=== PATIENT | male | born 1950 | race Caucasian/White ===

== ENCOUNTER 2018-08-20 05:50 | Inpatient (IN) ==
--- NOTE | 2018-08-07 13:06 | Anesthesiology Consultation ---
Date of Service August 07, 2018 Assessment & Plan (1) Encounter for pre-operative examination: Chart Review Chart Review: Acceptable Risk for Surgery and Patient seen in Pre Admission Testing Consults Requested medical (Dr. Meraz (08/14)) Patient was seen by PCPs office on 08/14/18. Per note, "Patient is medically cleared for surgery as scheduled. He has discussed risks/benefits with surgeon and elected to proceed. He has been instructed to stop his Coumadin today. He will start Lovenox injections twice daily starting tomorrow (08/15) as prescribed with his last dose of Lovenox prior to surgery being on the evening of August 19." Teaching & Discussion Pre-Anesthesia Teaching/Discussion Notes: Instructed NPO after midnight before surgery, except medications with 15 cc of water. Medication instructions provided according to the PAT guidelines. History Surgery Operation Date: 08/20/18 08:20 Proposed Procedures p Left Total Knee Arthroplasty - Jaquan Talavera MD Height/Weight Height: 5 ft 9 in Weight: 116.1 kg Allergies Allergy/AdvReac Type Severity Reaction Status Date / Time Penicillins Allergy Unknown Rash Verified 07/31/18 10:32 Medications Home Medications Medication Instructions Recorded Confirmed Last Taken calcium carbonate-vitamin D3 1 tab PO BID 07/31/18 07/31/18 Unknown [Calcium 500 + D (D3)] cyanocobalamin (vitamin B-12) 1,000 mcg PO QAM 07/31/18 07/31/18 Unknown folic acid 2 - 3 mg PO BID 07/31/18 07/31/18 Unknown lisinopril-hydrochlorothiazide 1 tab PO QAM 07/31/18 07/31/18 Unknown potassium chloride 20 meq PO BID 07/31/18 07/31/18 Unknown pyridoxine (vitamin B6) [Vitamin 300 mg PO BID 07/31/18 07/31/18 Unknown B-6] ranitidine HCl 150 mg PO DAILY PRN 07/31/18 07/31/18 Unknown simvastatin 20 mg PO PM 07/31/18 07/31/18 Unknown warfarin 2.5 - 5 mg PO QPM 07/31/18 07/31/18 Unknown Past Medical History Medical History Factor 5 Leiden mutation, heterozygous GERD (gastroesophageal reflux disease) Hyperlipidemia Hypertension Kidney stones Osteoarthritis Pulmonary embolism HX DVT TO PE-SPONTANEOUSLY SOB (shortness of breath) on exertion ON OCC Past Family History Family History Mother Family hx of colon cancer Past Surgical History Surgical History H/O knee surgery LEFT LIGAMENTS REPAIR History of arthroscopy LEFT History of cystoscopy WITH STONE REMOVAL/STENT History of herniorrhaphy UMBILICAL X 2 History of tonsillectomy S/P IVC filter REMAINS IN PLACE Past Anesthesia History No Hx of Anesthesia Complications and No Family Hx of Anesthesia Complications History of PONV No Motion Sickness Screening History of Motion Sickness: No Social History Smoking Status: Never smoker Do You Dip or Chew Tobacco: No (QUIT 35 YRS AGO) Hx Alcohol Use: Yes (ON OCC) Alcohol type: beer alcohol intake frequency: a few times a month Hx Substance Use: No substance use type: does not use Exercise / Class Metabolic Activity Able to climb FOS. Denies CP or SOB. Review of Systems Patient denies chest pain, shortness of breath, dyspnea on exertion, wheezing, palpitations. +joint pain (left knee) +acid reflux (occasional, helped by taking ranitidine) +cough (told it was from lisinopril) Physical Exam Vital Signs BP: 121/77 P: 83 R: 16 T: 98.2 SPO2: 97% on RA Constitutional + obese ENMT Thyromental Distance: > or= 3.5 Finger Breadths (3.5) Mallampati Class: II Neck normal visual inspection, trachea midline and + facial hair (advised); neck extension not limited Respiratory normal respiratory effort Auscultation: lungs clear to auscultation bilaterally Cardiovascular Rate/Rhythm: regular rate and regular rhythm Heart Sounds: no murmur Vessels: no carotid bruit Neurologic moves all extremities Psychiatric Orientation: alert and oriented x 3 Testing Electrocardiogram Date: 08/07/18 Findings: + NSR @ (76) Nonspecific ST and T wave abnormality. Chest X-Ray Date: 08/07/18 Findings: + NAD FINDINGS: The heart is at the upper limits of normal in size. There is a retrocardiac opacity consistent with a hiatal hernia. There is no failure. There is no focal pulmonary consolidation. There are no pleural effusions. There is bridging anterior calcification of the anterior longitudinal ligament within the dorsal spine. On the lateral projection and IVC filter is visualized. IMPRESSION: No active disease in the chest. Laboratory Results 08/07/18 13:18 08/07/18 13:18 Blood Type A Positive 08/07/18 13:18 Antibody Screen NEGATIVE 08/07/18 13:18 PT 26.5 Seconds (9.0-12.0) H 08/07/18 13:18 INR 2.8 (0.9-1.1) H 08/07/18 13:18 APTT 37.7 Seconds (21.0-31.0) H 08/07/18 13:18 Urine Color Yellow 08/07/18 13:18 Urine Appearance Clear (Clear) 08/07/18 13:18 Urine pH 5.0 (4.5-7.5) 08/07/18 13:18 Ur Specific Cope 1.021 (1.000-1.030) 08/07/18 13:18 Urine Protein Negative (Negative) 08/07/18 13:18 Urine Glucose (UA) Negative (Negative) 08/07/18 13:18 Urine Ketones Negative (Negative) 08/07/18 13:18 Urine Nitrite Negative (Negative) 08/07/18 13:18 Ur Leukocyte Esterase Negative (Negative) 08/07/18 13:18 Urine WBC (Auto) 1-5 /hpf (0-5) 08/07/18 13:18 Urine RBC (Auto) 0-4 /hpf (0-4) 08/07/18 13:18 U Hyaline Cast (Auto) 0 /lpf (0-5) 08/07/18 13:18 U Epithel Cells (Auto) 5-10 /lpf (0-5) H 08/07/18 13:18 Urine Bacteria (Auto) Negative (Negative) 08/07/18 13:18 08/07/18 13:18 Urine Culture - Final Urine,Clean Catch Three types of organisms present, all low counts probable skin lorelei. No further identifications or sensitivities to follow.
--- NOTE | 2018-08-07 13:08 | PAT Medication Instructions ---
Medication Instructions Date of Service August 07, 2018 Home Medications calcium carbonate-vitamin D3 1 tab PO BID cyanocobalamin (vitamin B-12) 1,000 mcg PO QAM folic acid 2 - 3 mg PO BID lisinopril-hydrochlorothiazide 1 tab PO QAM potassium chloride 20 meq PO BID pyridoxine (vitamin B6) 300 mg PO BID ranitidine HCl 150 mg PO DAILY NEEDED simvastatin 20 mg PO PM warfarin 2.5 - 5 mg PO QPM ASK your prescriber and surgeon warfarin 2.5 - 5 mg PO QPM DO NOT take the morning of surgery calcium carbonate-vitamin D3 1 tab PO BID cyanocobalamin (vitamin B-12) 1,000 mcg PO QAM folic acid 2 - 3 mg PO BID lisinopril-hydrochlorothiazide 1 tab PO QAM potassium chloride 20 meq PO BID pyridoxine (vitamin B6) 300 mg PO BID Take morning of surgery With a small sip of water, OTHERWISE NOTHING TO EAT OR DRINK AFTER MIDNIGHT: ranitidine HCl 150 mg PO DAILY NEEDED Take evening before surgery calcium carbonate-vitamin D3 1 tab PO BID folic acid 2 - 3 mg PO BID potassium chloride 20 meq PO BID pyridoxine (vitamin B6) 300 mg PO BID simvastatin 20 mg PO PM Other Notes If you have any questions please call us at [phone] or [phone] or [phone] or [phone]
--- NOTE | 2018-08-07 14:14 | XRay Report ---
XR chest Pre-admission PA/Lat CLINICAL HISTORY: Preoperative chest COMPARISON STUDY: No previous studies for comparison. FINDINGS: The heart is at the upper limits of normal in size. There is a retrocardiac opacity consist ent with a hiatal hernia. There is no failure. There is no focal pulmonary consolidation. There are n o pleural effusions. There is bridging anterior calcification of the anterior longitudinal ligament w ithin the dorsal spine. On the lateral projection and IVC filter is visualized.[ IMPRESSION: No active disease in the chest. Electronically signed by: Taz Soto M.D. 08/07/2018 2:13 PM
[2018-08-07 15:30] LABS: Basophils # (auto) 0.03 K/uL (0-0.2); Basophils % (auto) 0.3 %; Eosinophils # (auto) 0.24 K/uL (0-0.5); Eosinophils % (auto) 2.4 %; Hematocrit (blood only) 40.9 % (42-52); Hemoglobin 13.5 g/dL (14.0-18.0); Immature Granulocytes # (auto) 0.09 K/uL (0.00-0.02); Immature Granulocytes % (auto) 0.9 %; Lymphocytes # (auto) 2.87 K/uL (1.2-3.4); Lymphocytes % (auto) 28.1 %; Mean Corpuscular Volume 91.1 fL (80-100); Mean Platelet Volume 9.5 fL (7.4-10.4); Monocytes # (auto) 0.79 K/uL (0.11-0.59); Monocytes % (auto) 7.7 %; Neutrophils # (auto) 6.18 K/uL (1.4-6.5); Neutrophils % (auto) 60.6 %; Platelet Count 238 K/uL (130-400); RDW Coefficient of Variation 14.4 % (11.5-14.5); RDW Standard Deviation 47.6 fL (36.4-46.3); Red Blood Count 4.49 M/uL (4.7-6.1)
[2018-08-07 15:39] LABS: INR 2.8 (0.9-1.1); Partial Thromboplastin Ratio 1.4; Partial Thromboplastin Time 37.7 Seconds (21.0-31.0); Prothrombin Time 26.5 Seconds (9.0-12.0)
[2018-08-07 15:44] LABS: BUN Creatinine Ratio 12.9 (10-20); Calcium 8.7 mg/dl (8.5-10.1); Creatinine Clr Calc Pharmacy 67.2 ml/min; Est GFR (African American) 62.4; Est GFR (Non-African American) 53.8
[2018-08-07 16:25] LABS: Appearance Urine Clear (Clear); Bacteria Urine Automated Negative (Negative); Bilirubin Urine Negative (Negative); Blood Urine Trace (Negative); Cast Urine Automated 0 /lpf (0-5); Color Urine Yellow; Glucose Urine UA Negative (Negative); Ketones Urine Negative (Negative); Leukocyte Esterase Urine Negative (Negative); Nitrite Urine Negative (Negative); Protein Urine Negative (Negative); RBC Urine Automated 0-4 /hpf (0-4); Specific Gravity Urine 1.021 (1.000-1.030); Urobilinogen Urine Negative (Negative)
--- NOTE | 2018-08-15 15:53 | History and Physical Report ---
DATE OF ADMISSION: 08/20/2018 CHIEF COMPLAINT: Left knee pain. HISTORY OF PRESENT ILLNESS: The patient is a 68-year-old gentleman with known osteoarthritis about his left knee. He is unable to take anti-inflammatory medications due to Coumadin use. He had previous left knee surgery many years ago. Due to ongoing pain and disability, he now desires to proceed with left total knee arthroplasty. PAST MEDICAL HISTORY: Pulmonary embolism, factor V Leiden, hypertension, hyperlipidemia, GERD. PAST SURGICAL HISTORY: Tonsillectomy, adenoidectomy, left knee surgery, ventral hernia repair, ureteroscopy with stone removal and stent placement, vena cava filter insertion. MEDICATIONS: Coumadin 5 mg Monday and and 2.5 mg all other days, folic acid 1 mg 3 tablets in the morning and 2 tablets in the evening, lisinopril/hydrochlorothiazide 20/25 mg daily, potassium chloride ER 10 mEq 2 tablets twice daily, vitamin B6 100 mg 2 times daily, vitamin B12 1000 mcg daily, simvastatin 20 mg daily. ALLERGIES: PENICILLIN, BEE VENOM, EFRAIN INHIBITORS. SOCIAL HISTORY AND REVIEW OF SYSTEMS: Noncontributory. PHYSICAL EXAMINATION: GENERAL: Well-nourished, well-developed male who appears his stated age. HEENT: Normocephalic, atraumatic. Extraocular movements intact, oropharynx pink and moist. NECK: Supple without adenopathy. LUNGS: Clear to auscultation bilaterally. HEART: Regular rate and rhythm. ABDOMEN: Soft, nontender, nondistended. EXTREMITIES: The upper extremities are within normal limits. The left knee has a varus alignment. His range of motion is from 0 to 125 degrees. He complains primarily of medial compartment pain. He has mild crepitus with range of motion. X-RAYS: X-rays were reviewed. He has a varus aligned knee. He has bone on bone arthritis of medial compartment with complete loss of joint space. He has moderate degenerative change about the patellofemoral joint with osteophytes as well. ASSESSMENT: Left knee degenerative joint disease. PLAN: Risks versus benefits were discussed, consent was obtained. The patient's primary care is the [facility]. Will proceed with a left total knee arthroplasty as indicated.
[2018-08-20] MEDS ORDERED: dexAMETHasone 4 MG TAB PO SCH (06:00)
[2018-08-20] MEDS ORDERED: METOCLOPRAMIDE HCL 10 MG TABLET PO SCH (06:00)
[2018-08-20] MEDS ORDERED: LR 500ML BOLUS, THEN 15ML/HR IV SCH (06:00)
[2018-08-20] MEDS ORDERED: GABAPENTIN 300 MG PO SCH (06:00)
[2018-08-20] MEDS ORDERED: FAMOTIDINE 20 MG TAB PO SCH (06:00)
[2018-08-20] MEDS ORDERED: ACETAMINOPHEN 500 MG TAB PO SCH (06:00)
[2018-08-20] MEDS ORDERED: ROPIVACAINE 0.5% HCL/PF 150 MG, BUPIVACAINE 0.5% MPF 30 ML, EPINEPHrine 30MG/30ML (OR U... INFIL SCH (06:00)
[2018-08-20] MEDS ORDERED: CLINDAMYCIN 600 MG/54 ML BAG IV SCH (06:00)
[2018-08-20] MEDS ORDERED: CeleBREX 200 MG CAP PO SCH (06:00)
[2018-08-20] MEDS ORDERED: BUPIVACAINE 0.5 % 5 MG/1 ML PF 10ML VIAL ONE (06:42)
[2018-08-20] MEDS ORDERED: ROPIVACAINE 0.5% 5 MG/ML 30 ML VIAL ONE (06:42)
[2018-08-20] MEDS ORDERED: LIDOCAINE HCL 2% 2 ML VIAL/AMP(20MG/ML) INFIL ONE (06:43)
[2018-08-20] MEDS ORDERED: fentaNYL citrate 100 MCG/2 ML VIAL ONE (06:43)
[2018-08-20] MEDS ORDERED: EPINEPHrine INJ 1 MG/ML AMP ONE (06:43)
[2018-08-20] MEDS ORDERED: MIDAZOLAM HCL 1 MG/ML 2ML VIAL ONE (06:43)
[2018-08-20] MEDS ORDERED: PROPOFOL IV EMULSION 10 MG/ML 20 ML VIAL IV ONE (06:43)
--- NOTE | 2018-08-20 07:13 | History & Physical Bridge Note ---
Date of Service August 20, 2018 History & Physical Bridge Note I have examined the patient, reviewed the History & Physical and in the interval since the performance of the History & Physical I have noted the following changes of clinical significance: no changes noted
[2018-08-20 07:20] LABS: INR 1.1 (0.9-1.1); Partial Thromboplastin Time 26.2 Seconds (21.0-31.0); Prothrombin Time 10.8 Seconds (9.0-12.0)
[2018-08-20] MEDS ORDERED: POVIDONE-IODINE OP SOLN 30 ML BTL ONE (07:31)
[2018-08-20] MEDS ORDERED: BACITRACIN INJ 50,000 UNIT VIAL ONE (07:31)
[2018-08-20] MEDS ORDERED: ONDANSETRON INJ 2 MG/ML 2 ML VIAL ONE (08:54)
[2018-08-20] MEDS ORDERED: PHENYLEPHRINE 100MCG/ML 5ML SYR ONE (08:54)
[2018-08-20] MEDS ORDERED: ePHEDrine sulfate 50 MG/ML AMP IV PRN (09:13)
[2018-08-20] MEDS ORDERED: ONDANSETRON INJ 2 MG/ML 2 ML VIAL IV PRN ×2 (09:13→11:25)
[2018-08-20] MEDS ORDERED: ATROPINE SULFATE 0.1 MG/ML 10ML SYR IV PRN (09:13)
[2018-08-20] MEDS ORDERED: LABETALOL HCL IV 5 MG/ML 20ML IV PRN (09:13)
[2018-08-20] MEDS ORDERED: fentaNYL citrate 100 MCG/2 ML VIAL IV PRN (09:13)
[2018-08-20] MEDS ORDERED: MEPERIDINE HCL 25 MG/ML CARP IV PRN (09:13)
[2018-08-20] MEDS ORDERED: HYDROmorphone INJ 1 MG/ML SYRINGE IV PRN (09:13)
[2018-08-20] MEDS ORDERED: PHENYLEPHRINE 100MCG/ML 5ML SYR IV PRN (09:13)
--- NOTE | 2018-08-20 09:39 | Operative Report ---
Post Operative Report Pre & Post Diagnosis Operation Date: 08/20/18 08:20 Pre-Op Diagnosis: Left Knee Osteoarthritis Post-Op Diagnosis: Left Knee Osteoarthritis Procedure Operation Date: 08/20/18 08:20 Actual Procedures p Left Total Knee Arthroplasty(Left) - Jaquan Talavera MD Surgeon Jaquan Talavera MD Commercial Intern Jovani Estimated Blood Loss 10 Findings Consistent with Post-Op Diagnosis Specimens Bone fragments Complications none Disposition Accompanied Patient To Recovery: No Disposition: Recovery Room Indications Knee pain Description of Procedure Patient's left leg was prepped and draped in usual sterile manner the limb was exsanguinated with an Esmarch bandage and the tourniquet was inflated to 325 mmHg. Longitudinal incision was made electrocautery was used for hemostasis. Medium parapatellar incision was made the patella was everted and the knee was flexed. Fat pad was removed and the anterior and posterior cruciate was removed. The proximal tibia was osteotomized using the extramedullary alignment guide and this bone fragment was removed. A drill was used the KTP gain access to the femoral canal and the distal femur was cut using the oscillating saw. Chamfer cuts were made using the size 6 6 guide and meniscal remnants were removed. The notch was prepared using the appropriate guide and saw and this bone fragment was removed. Trial femur was placed blunt Hohmann was used to extend the tibia anteriorly and the proximal tibia was prepared using 5 tibial baseplate baseplate in the drill and the punch and mallet. Trial was placed in 9 poly-was chosen and the patella was prepared using the patellar reaming blade. The drill was used to drill the holes for the femoral pegs and a trial 39 patella was chosen. All trials were removed the knee was thoroughly irrigated periarticular joint mix was injected in the knee was thoroughly irrigated bone ends were dried cement was mixed and the final components were cemented into position. The knee was held in extension while cement hardened the Betadine soap was utilized Hemovac drain was placed in the knee was closed using #1 Vicryl subcutaneous tissue was closed using 0 Dexon skin was closed was applied. Sterile dressing of Adaptic 4 x 4's sterile Webril umbilicus applied. Jovani was essential to all portions of the case including positioning prepping draping surgical assistance wound closure and dressing application. I attest to the content of the Intraoperative Record and any orders documented therein. Any exceptions are noted below.
--- NOTE | 2018-08-20 10:35 | XRay Report ---
XR knee LT 2V routine CLINICAL HISTORY: Surgical Post Op COMPARISON: None. DISCUSSION: Anatomic alignment post total left knee arthroplasty. Good contact between prosthetic and underlying bone. Surgical drains are present IMPRESSION: Anatomic alignment post total left knee arthroplasty. The above report was generated using voice recognition software. It may contain grammatical, syntax or spelling errors. Electronically signed by: Vinay Mills M.D. 08/20/2018 10:33 AM
--- NOTE | 2018-08-20 10:42 | Anesthesiology Progress Note ---
Date of Service August 20, 2018 Anesthesia Post Procedure Vital Signs Vital Signs: Temp Pulse Pulse Resp BP BP Pulse Ox 08/20/18 10:30 93 H 99 H 116/73 99 08/20/18 10:20 90 24 98/64 L 99 08/20/18 10:14 36.5 C 88 17 77/47 L 99 08/20/18 06:18 36.9 C 87 20 142/94 H 96 Pain Intensity Left Knee: Pain Intensity: 2 Notes Mental Status: alert / awake / arousable and participated in evaluation Nausea / Vomiting: adequately controlled Pain: adequately controlled Airway Patency, RR, SpO2: stable & adequate BP & HR: stable & adequate Hydration State: stable & adequate Neuraxial Anesthesia: was administered Anesthetic Complications: no major complications apparent
[2018-08-20] MEDS ORDERED: NALOXONE HCL 0.4 MG/1 ML VIAL/CARP IV PRN (11:25)
[2018-08-20] MEDS ORDERED: METOCLOPRAMIDE HCL INJ 5 MG/ML 2 ML VIAL IV PRN (11:25)
[2018-08-20] MEDS ORDERED: BISACODYL 10 MG SUPP PR PRN (11:25)
[2018-08-20] MEDS ORDERED: MAGNESIUM HYDROXIDE SUSP 30 ML UDC PO PRN (11:25)
[2018-08-20] MEDS ORDERED: HYDROmorphone INJ 0.5 MG/0.5 ML SYR IV PRN (11:25)
[2018-08-20] MEDS: SODIUM CHLORIDE 0.9% 1000ML 1,000 ML IV SCH ×2 (14:38→22:45)
[2018-08-20] MEDS: ACETAMINOPHEN 500 MG TAB PO SCH ×2 (14:39→21:12)
[2018-08-20 15:39] LABS: Hematocrit (blood only) 37.7 % (42-52); Hemoglobin 12.2 g/dL (14.0-18.0); Mean Corpuscular Hgb Conc 32.4 g/dL (32-36); Mean Corpuscular Volume 91.5 fL (80-100); Mean Platelet Volume 9.5 fL (7.4-10.4); Platelet Count 225 K/uL (130-400); RDW Coefficient of Variation 14.6 % (11.5-14.5); RDW Standard Deviation 49.1 fL (36.4-46.3); Red Blood Count 4.12 M/uL (4.7-6.1); White Blood Count 16.48 K/uL (4.8-10.8)
[2018-08-20 16:01] LABS: Creatinine Clr Calc Pharmacy 44.3 ml/min; Est GFR (Non-African American) 32.8
[2018-08-20] MEDS: CLINDAMYCIN 600 MG in DEXTROSE 5% 50 ML IV SCH (16:15)
[2018-08-20] MEDS: FERROUS GLUCONATE 324 MG TAB PO SCH (17:41)
[2018-08-20] MEDS: SIMVASTATIN 20 MG TAB PO SCH (20:00)
[2018-08-20] MEDS: DOCUSATE SODIUM 100 MG CAP PO SCH (20:01)
[2018-08-20] MEDS: SENNA 8.6 MG TAB PO SCH (20:01)
[2018-08-20] MEDS: POTASSIUM CHLORIDE 20 MEQ TABCR PO SCH (20:01)
[2018-08-20] MEDS: OXYCODONE HCL IR 5 MG TAB (IMMEDIATE RELEASE) PO PRN (20:47)
[2018-08-21] MEDS: CLINDAMYCIN 600 MG in DEXTROSE 5% 50 ML IV SCH (00:26)
[2018-08-21] MEDS: ACETAMINOPHEN 500 MG TAB PO SCH ×3 (06:19→21:18)
[2018-08-21 06:21] LABS: Hematocrit (blood only) 33.3 % (42-52); Hemoglobin 10.8 g/dL (14.0-18.0); Mean Corpuscular Hgb Conc 32.4 g/dL (32-36); Mean Platelet Volume 9.2 fL (7.4-10.4); Platelet Count 186 K/uL (130-400); RDW Coefficient of Variation 14.6 % (11.5-14.5); RDW Standard Deviation 48.3 fL (36.4-46.3); Red Blood Count 3.66 M/uL (4.7-6.1); White Blood Count 16.54 K/uL (4.8-10.8)
[2018-08-21 06:51] LABS: BUN Creatinine Ratio 17.6 (10-20); Calcium 7.8 mg/dl (8.5-10.1); Creatinine Clr Calc Pharmacy 57.8 ml/min; Est GFR (African American) 52.5; Est GFR (Non-African American) 45.3; Potassium 4.8 mmol/L (3.5-5.1)
--- NOTE | 2018-08-21 08:04 | Orthopedic Progress Note ---
Date of Service August 21, 2018 Assessment & Plan (1) Status post left knee replacement: 68 yo male stable POD #1 s/p left TKA 1. Med management 2. DVT prophylaxis- Lovenox and Coumadin, SCDs 3. PT/OT 4. D/C planning- home w/ HH Subjective Pt sitting in chair, pain controlled, denies complaints Physical Exam Vital Signs (Past 24 Hours): Last Vital Signs Temp 36.6 C 08/21/18 06:59 Pulse 79 08/21/18 06:59 Resp 18 08/21/18 06:59 BP 112/73 08/21/18 06:59 Pulse Ox 98 08/21/18 06:59 Physical Exam: Toes mobile, N/V/I, dressing and drain in place Results & Data Laboratory Results 08/21/18 08/21/18 08/21/18 Range/Units 06:08 06:08 06:08 WBC 16.54 H (4.8-10.8) K/uL RBC 3.66 L (4.7-6.1) M/uL Hgb 10.8 L (14.0-18.0) g/dL Hct 33.3 L (42-52) % MCV 91.0 (80-100) fL MCH 29.5 (25-34) pg MCHC 32.4 (32-36) g/dL RDW Std Deviation 48.3 H (36.4-46.3) fL RDW Coeff of Radha 14.6 H (11.5-14.5) % Plt Count 186 (130-400) K/uL MPV 9.2 (7.4-10.4) fL Sodium 135 L (136-145) mmol/L Potassium 4.8 (3.5-5.1) mmol/L Chloride 105 (98-107) mmol/L Carbon Dioxide 22 (21-32) mmol/L Anion Gap 9.0 (3-11) BUN 28 H (7-18) mg/dl Creatinine 1.57 H D (0.6-1.4) mg/dl Est Cr Clr Drug Dosing 57.8 ml/min Est GFR ( Amer) 52.5 Est GFR (Non-Af Amer) 45.3 BUN/Creatinine Ratio 17.6 (10-20) Glucose 136 H (70-99) mg/dl Calcium 7.8 L (8.5-10.1) mg/dl Hepatitis C Ab Screen Pending 08/20/18 08/20/18 Range/Units 14:51 14:51 WBC 16.48 H (4.8-10.8) K/uL RBC 4.12 L (4.7-6.1) M/uL Hgb 12.2 L (14.0-18.0) g/dL Hct 37.7 L (42-52) % MCV 91.5 (80-100) fL MCH 29.6 (25-34) pg MCHC 32.4 (32-36) g/dL RDW Std Deviation 49.1 H (36.4-46.3) fL RDW Coeff of Radha 14.6 H (11.5-14.5) % Plt Count 225 (130-400) K/uL MPV 9.5 (7.4-10.4) fL Sodium (136-145) mmol/L Potassium (3.5-5.1) mmol/L Chloride (98-107) mmol/L Carbon Dioxide (21-32) mmol/L Anion Gap (3-11) BUN (7-18) mg/dl Creatinine 2.05 H (0.6-1.4) mg/dl Est Cr Clr Drug Dosing 44.3 ml/min Est GFR ( Amer) 38.0 Est GFR (Non-Af Amer) 32.8 BUN/Creatinine Ratio (10-20) Glucose (70-99) mg/dl Calcium (8.5-10.1) mg/dl Hepatitis C Ab Screen
[2018-08-21] MEDS: FERROUS GLUCONATE 324 MG TAB PO SCH ×2 (08:48→16:52)
[2018-08-21] MEDS: CYANOCOBALAMIN 500 MCG TABLET (VITAMIN B-12) PO SCH (08:49)
[2018-08-21] MEDS: POTASSIUM CHLORIDE 20 MEQ TABCR PO SCH ×2 (08:49→21:19)
[2018-08-21] MEDS: MULTIVITAMIN TAB PO SCH (08:49)
[2018-08-21] MEDS: DOCUSATE SODIUM 100 MG CAP PO SCH ×2 (08:49→21:19)
[2018-08-21] MEDS: LISINOPRIL/HCTZ 20/25MG 1 TAB PO SCH (08:49)
[2018-08-21] MEDS: OXYCODONE HCL IR 5 MG TAB (IMMEDIATE RELEASE) PO PRN ×3 (08:50→19:49)
[2018-08-21] MEDS: ENOXAPARIN INJ 120 MG/0.8 ML SYR SC SCH ×2 (08:53→21:19)
--- NOTE | 2018-08-21 09:41 | Anesthesiology Progress Note ---
Date of Service August 21, 2018 Anesthesia Post Procedure Vital Signs Vital Signs: Temp Pulse Pulse Pulse Pulse Resp BP 08/21/18 06:59 36.6 C 79 18 112/73 08/21/18 03:00 36.5 C 72 18 101/62 08/20/18 23:00 36.5 C 75 18 08/20/18 18:55 36.8 C 85 18 08/20/18 15:49 36.7 C 97 H 18 128/78 08/20/18 15:11 36.6 C 94 H 16 109/75 08/20/18 14:09 36.7 C 111 H 18 116/77 08/20/18 13:01 94 H 17 111/73 08/20/18 11:56 36.5 C 79 17 109/71 08/20/18 11:26 36.6 C 87 19 113/73 08/20/18 11:00 36.7 C 89 18 107/69 08/20/18 10:50 37.0 C 94 H 94 H 101/67 08/20/18 10:40 94 H 94 H 102/65 08/20/18 10:30 93 H 99 H 116/73 08/20/18 10:20 90 24 98/64 L 08/20/18 10:14 36.5 C 88 17 77/47 L BP Pulse Ox 08/21/18 06:59 98 08/21/18 03:00 97 08/20/18 23:00 96/63 L 96 08/20/18 18:55 107/69 96 08/20/18 15:49 94 08/20/18 15:11 92 08/20/18 14:09 96 08/20/18 13:01 97 08/20/18 11:56 96 08/20/18 11:26 96 08/20/18 11:00 08/20/18 10:50 92 08/20/18 10:40 93 08/20/18 10:30 99 08/20/18 10:20 99 08/20/18 10:14 99 Pain Intensity Left Knee: Pain Intensity: 1 Notes Mental Status: alert / awake / arousable and participated in evaluation Patient Amnestic to Procedure: Yes Nausea / Vomiting: see Notes below Pain: adequately controlled Airway Patency, RR, SpO2: stable & adequate BP & HR: stable & adequate Hydration State: stable & adequate Anesthetic Complications: no major complications apparent and Pt Satisfied with anesthetic care
[2018-08-21] MEDS ORDERED: WARFARIN SOD 5 MG TAB PO SCH (16:00)
[2018-08-21 18:35] LABS: Prothrombin Time 10.2 Seconds (9.0-12.0)
[2018-08-21] MEDS: SIMVASTATIN 20 MG TAB PO SCH (21:19)
[2018-08-21] MEDS: SENNA 8.6 MG TAB PO SCH (21:19)
[2018-08-22] MEDS: OXYCODONE HCL IR 5 MG TAB (IMMEDIATE RELEASE) PO PRN ×2 (01:10→07:40)
[2018-08-22 06:07] LABS: Prothrombin Time 10.4 Seconds (9.0-12.0)
[2018-08-22] MEDS: ACETAMINOPHEN 500 MG TAB PO SCH (06:13)
--- NOTE | 2018-08-22 07:30 | Orthopedic Progress Note ---
Date of Service August 22, 2018 Assessment & Plan (1) Status post left knee replacement: 68 yo male stable POD #2 s/p left TKA 1. Med management 2. DVT prophylaxis- Lovenox and Coumadin, SCDs 3. PT/OT 4. D/C planning- home w/ HH Subjective Pt sitting in chair, pain controlled, denies complaints Physical Exam Vital Signs (Past 24 Hours): Last Vital Signs Temp 36.6 C 08/22/18 06:07 Pulse 82 08/22/18 06:07 Resp 16 08/22/18 06:07 BP 122/79 08/22/18 06:07 Pulse Ox 99 08/22/18 06:07 Physical Exam: Toes mobile, N/V/I, Silverlon dressing in place
[2018-08-22] MEDS: FERROUS GLUCONATE 324 MG TAB PO SCH (07:37)
[2018-08-22] MEDS: POTASSIUM CHLORIDE 20 MEQ TABCR PO SCH (07:37)
[2018-08-22] MEDS: DOCUSATE SODIUM 100 MG CAP PO SCH (07:37)
[2018-08-22] MEDS: ENOXAPARIN INJ 120 MG/0.8 ML SYR SC SCH (07:38)
[2018-08-22] MEDS: LISINOPRIL/HCTZ 20/25MG 1 TAB PO SCH (07:39)
[2018-08-22] MEDS: MULTIVITAMIN TAB PO SCH (07:39)
[2018-08-22] MEDS: CYANOCOBALAMIN 500 MCG TABLET (VITAMIN B-12) PO SCH (07:40)
--- NOTE | 2018-08-23 06:21 | Discharge Summary ---
Date of Service August 23, 2018 Discharge Data Allergies Allergy/AdvReac Type Severity Reaction Status Date / Time Penicillins Allergy Unknown Rash Verified 08/20/18 06:30 Consultations 08/20/18 11:25 Consult Case Management - Discharge Planning Routine Procedures Performed Operation Date: 08/20/18 08:20 Actual Procedures p Left Total Knee Arthroplasty(Left) - Jaquan Talavera MD Ordered Studies 08/20/18 05:00 US - OR guided needle placemen Routine Hospital Course (1) Status post left knee replacement: 68 yo male stable POD #2 s/p left TKA 1. Med management 2. DVT prophylaxis- Lovenox and Coumadin, SCDs 3. PT/OT 4. D/C planning- home w/ HH Discharge Plan Discharge Items Patient Disposition: Home - Home Health Services Reason For Visit: Left Knee Osteoarthritis Discharge Diagnosis: Left Knee Osteoarthritis Discharge Goals: Decrease discomfort and Improve function Activity: Per 'Additional Instructions' section Weightbearing: Left weightbearing Non-emergency contact: Surgeon Call non-emergency contact if: your pain is not controlled, your temperature is above 101.5, your wound has increased redness and your wound has increased drainage Follow-up/Referrals: Duran Meraz MD [Primary Care Provider] - Diet: Regular Addtl Provider Instructions: ACTIVITY RECOMMENDATIONS: SELF CARE INSTRUCTIONS AFTER TOTAL KNEE REPLACEMENT A. You may need to continue a physical therapy program after discharge from the hospital. There are several options available to you. Your doctor will assist you in selecting the best one for you. 1. An out-patient facility 2 to 3 times a week for therapy or home therapy. 2. Continue working on all exercises taught to you in the hospital. Your goals should be to increase bending of your knee to 90 degrees and beyond and to fully straighten your knee. B. You may progress at your own pace from walking with a walker or crutches to a cane; then to no assistive devices. C. Make walking a part of your daily routine. Be up as much as comfortable with rest periods throughout the day. Rest with leg elevation is very important. Use the ice wrap frequently for the first 3-4 weeks. D. There are no restrictions on activities. You may ride in a car, shop, participate in customer support representative and all social activities. E. Wear the long elastic stockings (DAVID hose) 20 hours a day for 2 weeks after surgery. They can be removed several times a day for laundering and for a bath. F. You may shower, no tub baths until cleared by your doctor. SPECIAL CARE INSTRUCTIONS: VERY IMPORTANT TO READ AND REVIEW A. There are a few signs you need to watch for after you are home. Call [facility] if you notice any of the followin. Increased severe knee pain. Some pain is expected especially when you exercise. 2. Increased swelling in your leg or knee; pain or swelling of the calf muscle in either lower leg. 3. Any fluid drainage from the incision. 4. Shortness of breath or chest pain. B. Please call [facility] at if you have any concerns or questions about your operation or recovery. The doctor or his nurse will return your call promptly. C. You must take antibiotics before dental work, bladder, bowel or other surgery. Your doctor will provide you with a permanent care to carry describing this precaution. IMPORTANT: * REMEMBER TO TAKE COUMADIN AND LOVENOX DAILY UNLESS OTHERWISE DIRECTED. HAVE YOUR INR CHECKED REGULARLY. ONCE YOUR INR IS THERAPEUTIC, YOU MAY STOP THE LOVENOX SHOTS. THIS IS YOUR BLOOD THINNER. . * CALL IF INCREASED PAIN, REDNESS, DRAINAGE OR FEVER GREATER THAT 101. * WEAR DAVID HOSE 20 HOURS PER DAY FOR 2 WEEKS. * You have a Zipline Closure System. As noted below, this keeps your incision closed. Change the dressing daily. Keep the wound covered with a dressing as it has the potential to snag on your clothing. The Zipline will remain on for a total of 2 weeks. Do not remove it! You may shower with this on. Do not soak it; no tub baths. You will be given instructions by nursing staff at the time of discharge to care for your Zip Closure System. This devices uses plastic straps to keep your incision closed and protected throughout your recovery. If you have any questions please refer to these instructions first. . Silverlon- This is a large adhesive bandage that contains silver ions. This helps your incision heal by fighting off bacteria and protecting it from the outside environment. You are permitted to shower with this dressing. This will remain on your incision for 7 days and then should be removed. Some visible blood or drainage through the dressing window is normal. If there is significant drainage or leaking noted before the 7 days notify your doctor's office immediately. Once removed, keep incision clean and dry. If there is any drainage or redness noted, please call your surgeon. FOLLOW UP VISIT: If appointment is not already scheduled: Please call [facility] to make a follow-up appointment for 2 weeks after your surgery at . Prescriptions: New acetaminophen [Pain Reliever] 500 mg Tablet 1,000 mg PO Q8 Qty: 0 RF: 0 enoxaparin [Lovenox] 120 mg/0.8 mL Syringe 120 mg SC BID Qty: 6 RF: 0 oxycodone 5 mg capsule 5 - 10 mg PO Q6 PRN (Reason: pain) Qty: 30 RF: 0 Continued warfarin 2.5 mg Tablet 2.5 - 5 mg PO QPM RF: 0 simvastatin 20 mg Tablet 20 mg PO PM RF: 0 lisinopril-hydrochlorothiazide 20-25 mg Tablet 1 tab PO QAM RF: 0 folic acid 1 mg Tablet 2 - 3 mg PO BID RF: 0 pyridoxine (vitamin B6) [Vitamin B-6] 100 mg Tablet 300 mg PO BID RF: 0 calcium carbonate-vitamin D3 [Calcium 500 + D (D3)] 500 mg(1,250mg) -125 unit Tablet 1 tab PO BID RF: 0 potassium chloride 20 mEq Tablet Extended Release 20 meq PO BID RF: 0 cyanocobalamin (vitamin B-12) 1,000 mcg Capsule 1,000 mcg PO QAM RF: 0 ranitidine HCl 150 mg Capsule 150 mg PO DAILY PRN (Reason: Acid Reflux) RF: 0 Discontinued Lovenox 125 mg stick 120 mg SC BID RF: 0 Stand-Alone Forms: [employer], [facility]/Other Patient Handouts: Enoxaparin Sodium Porcine Solution for injection, Surgery Prevent DVT After, ED Stockings David Discharge Orders: Discharge Order (Routine); Ordered 08/22/18 Ordered By: Wesley Simmons Admission Data Admit Date/Time: 08/20/18 10:24 Attending Provider: Jaquan Talavera Admit Provider: Jaquan Talavera Primary Care Provider: Duran Meraz Service: Surgical Services Other Interventions: Discharge Summary Assessment (RN) Last Done: 08/22/18 09:00 DC Date/Time DO NOT enter until pt leaves facility: 08/22/18 10:55
--- NOTE | 2018-08-23 06:21 | Discharge Summary ---
Date of Service August 28, 2018 Discharge Data Consultations 08/20/18 11:25 Consult Case Management - Discharge Planning Routine Procedures Performed Operation Date: 08/20/18 08:20 Actual Procedures p Left Total Knee Arthroplasty(Left) - Jaquan Talavera MD
--- NOTE | 2018-08-24 01:45 | Discharge Summary ---
DISCHARGE DIAGNOSIS: Degenerative joint disease, left knee. SECONDARY DIAGNOSES: Pulmonary embolism in the past with history of factor V Leiden mutation, hypertension, hyperlipidemia, gastroesophageal reflux disease. CONSULTATIONS: None. COMPLICATIONS: None. PROCEDURES: Left total knee arthroplasty performed by Dr. Talavera on 08/20/2018. BRIEF HISTORY: As dictated in the history and physical. HOSPITAL SUMMARY: The patient was admitted on the above-noted date and had the above-noted surgery performed which he tolerated well. On the first postoperative day, he was seen in his chair. Pain was controlled and he had no complaints. Vital signs were stable. He was afebrile. Toes were mobile. Neurovascularly intact. Dressings and drain were placed. Hemoglobin was 10.8 and he was started on physical therapy protocol and continued on DVT prophylaxis and pain management. By his second postoperative day, he continued to remain stable. He had no complaints. Pain was controlled. Vital signs remained stable. He was afebrile. Silverlon dressing was in place and intact. Toes were mobile. Neurovascularly intact. He is progressing with his physical therapy and it was felt that he could be discharged to home on 08/22/2018 with home health services. For further review, please see chart. LABORATORY AND X-RAY DATA: As per chart. DISCHARGE INSTRUCTIONS: The patient was discharged home in satisfactory condition on 08/22/2018. DIET: Regular. ACTIVITY: Weightbearing as tolerated on the left lower extremity. Follow TK instruction sheets and special care instructions as noted. Follow up with Dr. Talavera in 2 weeks. The patient is to call for appointment if one has not been made for you. DISCHARGE MEDICATIONS: Acetaminophen 1000 mg p.o. q. 8 hours, enoxaparin 120 mg subcutaneous b.i.d., oxycodone 5-10 mg p.o. q. 6 hours. Resume home meds as listed including warfarin dosing. Of note, the patient is to regularly check his INR and stop taking Lovenox when INR is therapeutic.
== END 2018-08-22 10:55 | disposition home health service (06) | DRG 470 ==
LOC: ASU 05:50 → 3E 10:24
DX: I10 Essential (primary) hypertension; E78.5 Hyperlipidemia, unspecified; Z51.81 Encounter for therapeutic drug level monitoring; Z79.01 Long term (current) use of anticoagulants; D68.51 Activated protein C resistance; Z86.718 Personal history of other venous thrombosis and embolism; Z88.0 Allergy status to penicillin; M17.12 Unilateral primary osteoarthritis, left knee; Z91.030 Bee allergy status; Z79.899 Other long term (current) drug therapy; Z86.711 Personal history of pulmonary embolism; Z88.8 Allergy status to other drugs, medicaments and biological substances; Z80.0 Family history of malignant neoplasm of digestive organs